=== PATIENT | male | born 1980 | race Caucasian/White ===

== ENCOUNTER → 2016-05-19 | Day surgery (SDC) | payer OTHER ==
[~2016-05-19] VITALS: Ht 177.8 cm; Wt 70.3 kg
[2016-05-19] VITALS (8 sets, daily range): BP systolic 102–117; BP diastolic 63–79
[~2016-05-19] MED LIST: APRISO0.375 GM PO; ASACOL HD800 MG ORAL; LR 1000ml ONE; Lidocaine 1% MPF 10mg/ml 5ml ONE; Propofol 10mg/ml 20ml IV ONE; SERTRALINE HCL50 MG ORAL
--- NOTE | 2016-05-19 08:15 | Pre-Procedure Note/Attestation ---
Pre-Procedure Note/Attestation Complete Prior to Procedure Planned Procedure: not applicable Procedure Narrative: colonoscopy Indications for Procedure Pre-Operative Diagnosis: uc Attestation I attest that I discussed the nature of the procedure; its benefits; risks and complications; and alternatives (and the risks and benefits of such alternatives ), prior to the procedure, with the patient (or the patient's legal insurance representative). I attest that, if there was a reasonable possibility of needing a blood transfusion, the patient (or the patient's legal insurance representative) was given the [facility] standardized written summary, pursuant to the [place] Blood Safety Act ([place] Health and Safety Code # 1645, as amended). I attest that I re-evaluated the patient just prior to the surgery and that there has been no change in the patient's H&P, except as documented below: IRMA TODD May 19, 2016 08:15
--- NOTE | 2016-05-19 08:16 | Short Stay Surgery H&P ---
History of Present Illness History of Present Illness Chief Complaint uc HPI Varinder Garcia is a 36 year old male who was admitted on for Colitis Patient History Allergies: Coded Allergies: PENICILLINS (Verified Allergy, Mild, 05/19/16) PALMS OF HAND AND FEET GET ITCHY PAST MEDICAL HISTORY: (1) Ulcerative colitis Past Surgeries: Social History: Medication History Scheduled Mesalamine (Apriso), 0.375 GM PO DA, (Reported) Discontinued Medications Mesalamine (Asacol Hd), 2,400 MG ORAL BID, (Reported) Discontinued Reason: Pt stopped taking med Sertraline Hcl* (Zoloft*), 50 MG ORAL DAILY, (Reported) Discontinued Reason: Pt stopped taking med Review of Systems Cardiovascular: Reports: no symptoms Respiratory: Reports: no symptoms Skeletal: Reports: no symptoms Gastrointestinal: Reports: no symptoms Genitourinary: Reports: no symptoms Neurologic: Reports: no symptoms Endocrine: Reports: no symptoms Hematologic: Reports: no symptoms Physical Exam Vital Signs Last Vital Signs Date Time Temp Pulse Resp B/P Pulse Ox O2 Delivery O2 Flow Rate FiO2 05/19/16 07:19 97.7 66 20 117/79 100 Room Air Skin: normal HENT: normal Heart: normal Lungs: normal Abdomen: normal Extremities: normal Plan Plan of Care colonoscopy Final Diagnosis: Attestation Are the patient's medical conditions optimized for surgery? Attestation Response: yes IRMA TODD May 19, 2016 08:16
--- NOTE | 2016-05-19 08:38 | Anethesia Preoperative Eval ---
Anesthesia Pre-op PMH/ROS General Date of Evaluation: May 19, 2016 Time of Evaluation: 08:36 Anesthesiologist: uzma ASA Score: ASA 2 Mallampati Score Class I : Soft palate, uvula, fauces, pillars visible Class II: Soft palate, uvula, fauces visible Class III: Soft palate, base of uvula visible Class IV: Only hard plate visible Surgeon: terry Diagnosis: ulcerative colitis Surgical Procedure: colonoscopy Anesthesia History: none Family History: no anesthesia problems Allergies: Coded Allergies: PENICILLINS (Verified Allergy, Mild, 05/19/16) PALMS OF HAND AND FEET GET ITCHY Medications: see eMAR Past Medical History Cardiovascular: Denies: CAD, HTN, TN, arrhythmia, other, valve dz Pulmonary: Denies: COPD, ISIDRO, asthma, other Gastrointestinal/Genitourinary: Reports: other - ulcertive coliti Neurologic/Psychiatric: Denies: CVA, TIA, dementia, depression/anxiety, other HEENT: Denies: [place] (L), [place] (R), cataract (L), cataract (R), glaucoma, other Hematology/Immune: Denies: DVT, anemia, bleeding disorder, other Musculoskeletal/Integumentary: Denies: DDD, DJD, OA, RA, edema, other PSxH Narrative: colonscopy Anesthesia Pre-op Phys. Exam Physician Exam Last Vital Signs Date Time Temp Pulse Resp B/P Pulse Ox O2 Delivery O2 Flow Rate FiO2 05/19/16 07:19 97.7 66 20 117/79 100 Room Air Constitutional: NAD Neurologic: CN 2-12 intact Cardiovascular: RRR Respiratory: CTA Gastrointestinal: S/NT/ND Airway Exam Mallampati Classification 2 Mallampati Score: Class II MO: full Neck: normal ROM: full Dentures: no lower, no upper Anesthesia Pre-op A/P Studies Pre-op Studies: EKG - sr Risk Assessment & Plan Plan: mac Pre-Antibiotics Drug: none ARSALAN CASTILLO CRNA May 19, 2016 08:38
--- NOTE | 2016-05-19 08:57 | Immediate Post-Op Evaluation ---
Immediate Post-Op Evalulation Immediate Post-Op Evalulation Procedure: colonoscopy Date of Evaluation: May 19, 2016 Time of Evaluation: 08:57 IV Fluids: 200 Blood Pressure Systolic: 114 Blood Pressure Diastolic: 64 Pulse Rate: 74 O2 Sat by Pulse Oximetry: 98 Temperature (Fahrenheit): 97.4 Nausea: No Vomiting: No Complications none Patient Status: awake, reacts, patent Hydration Status: adequate Drug: none ARSALAN CASTILLO CRNA May 19, 2016 08:57
--- NOTE | 2016-05-19 09:30 | 48 Hour Post Anesthesia Eval ---
Post Anesthesia Evaluation Procedure: colonoscopy Date of Evaluation: May 19, 2016 Time of Evaluation: 09:29 Blood Pressure Systolic: 115 0: 65 Pulse Rate: 75 O2 Sat by Pulse Oximetry: 99 Airway: patent Nausea: No Vomiting: No Hydration Status: adequate Mental Status/LOC: patient returned to baseline Post-Anesthesia Complications: none ARSALAN CASTILLO CRNA May 19, 2016 09:30
--- NOTE | 2016-05-19 19:59 | Procedure Note ---
DATE OF PROCEDURE: 05/19/2016 SURGEON: Bobby Diego M.D. PROCEDURE: Colonoscopy with biopsy. ANESTHESIA: Per VACUUM REPAIRER, Yissel Tarrillion. INSTRUMENT: Olympus adult flexible colonoscope. INDICATION: Ulcerative colitis and follow up colonoscopy. REASON FOR PROCEDURE: The procedure, risks, benefits, and possible consequences, including hemorrhage, aspiration, perforation and infection, and alternative treatments were explained to the patient/legal guardian by Dr. Bobby Diego and the patient/legal guardian understood and accepted these risks. DESCRIPTION OF PROCEDURE: After informed consent was obtained and the patient was adequately sedated, first rectal exam was performed, which shows normal. Then, Olympus colonoscope was advanced from the rectum into the cecum documented by appendiceal orifice, ileocecal valve, and upper quadrant palpation. Quality of prep was very good. The patient had normal colonoscopy examination. No obvious active colitis at this time. No polyps. No diverticulosis. Random biopsy from the of the colon was obtained from the cecum, ascending colon, transverse colon, descending colon, sigmoid and rectum were obtained. Retroflexion of rectum showed evidence of few small nonbleeding internal hemorrhoid. SUMMARY OF FINDINGS: Normal colonoscopy examination status post random biopsies from all quadrants colon for evaluation of the ulcerative colitis. RECOMMENDATIONS: Follow up biopsies and treat accordingly. Bobby Diego M.D. DR: Devan JOB#: [id number] CC:
--- NOTE | 2016-05-22 12:08 | Endoscopy Procedure Note ---
Endoscopy Procedure Note Indication for Procedure: uc Procedures Performed: colonoscopy Operative Findings/Diagnosis: hemorhoids Specimen: yes Pt Tolerated Procedure Well: Yes Estimated Blood Loss: none Anesthesiologist: zena Anesthesia: MAC Implant(s) used?: No 50 yrs or older w/o bx or poly: Not Applicable 10yrs. F/U not recommended: Not Applicable IRMA TODD May 22, 2016 12:08
== END | disposition home or self-care (01) ==
LOC: GAS 06:52
DX: K51.90 Ulcerative colitis, unspecified, without complications (principal); Z88.0 Allergy status to penicillin
CPT/HCPCS: 45380; J2704; J7120; 94003; 94150

== ENCOUNTER 2018-06-30 07:04 | Day surgery (SDC) | payer OTHER ==
[~2018-06-30] VITALS: Ht 177.8 cm; Wt 70.3 kg
[2018-06-30] VITALS (10 sets, daily range): BP systolic 102–125; BP diastolic 60–75
[~2018-06-30 07:04] MED LIST changes: -LR 1000ml ONE; -Lidocaine 1% MPF 10mg/ml 5ml ONE; -Propofol 10mg/ml 20ml IV ONE
[2018-06-30] MEDS ORDERED: ZINC50 M2 ORAL (07:42)
[2018-06-30] MEDS ORDERED: MULTIVITAMINS1 EAC2 ORAL (07:42)
[2018-06-30] MEDS ORDERED: VITAMIN B122500 MCG PO (07:42)
--- NOTE | 2018-06-30 08:49 | Pre-Procedure Note/Attestation ---
Pre-Procedure Note/Attestation Complete Prior to Procedure Planned Procedure: not applicable Procedure Narrative: colonoscopy Indications for Procedure Pre-Operative Diagnosis: uc Attestation I attest that I discussed the nature of the procedure; its benefits; risks and complications; and alternatives (and the risks and benefits of such alternatives ), prior to the procedure, with the patient (or the patient's legal traffic workforce representative). I attest that, if there was a reasonable possibility of needing a blood transfusion, the patient (or the patient's legal traffic workforce representative) was given the [facility] standardized written summary, pursuant to the [place] Blood Safety Act ([place] Health and Safety Code # 1645, as amended). I attest that I re-evaluated the patient just prior to the surgery and that there has been no change in the patient's H&P, except as documented below: Bobby Diego MD Jun 30, 2018 08:49
--- NOTE | 2018-06-30 08:50 | Short Stay Surgery H&P ---
History of Present Illness History of Present Illness Chief Complaint uc HPI Varinder Garcia is a 38 year old male who was admitted on for Abdominal Pain Patient History Allergies: Coded Allergies: PENICILLINS (Verified Allergy, Mild, 06/30/18) PALMS OF HAND AND FEET GET ITCHY PAST MEDICAL HISTORY: (1) Ulcerative colitis Medication History Scheduled Cyanocobalamin (Vitamin B-12) (Vitamin B12), 2,500 MCG PO DAILY, (Reported) Mesalamine (Apriso), 0.375 GM PO DA, (Reported) Multivitamins* (Multivitamins*), 1 TAB ORAL DAILY, (Reported) Zinc Amino Acid Chelate (Zinc), Unknown Dose ORAL DAILY, (Reported) Review of Systems Cardiovascular: Reports: no symptoms Respiratory: Reports: no symptoms Skeletal: Reports: no symptoms Gastrointestinal: Reports: no symptoms Genitourinary: Reports: no symptoms Neurologic: Reports: no symptoms Endocrine: Reports: no symptoms Hematologic: Reports: no symptoms Physical Exam Vital Signs Last Vital Signs Date Time Temp Pulse Resp B/P (MAP) Pulse Ox O2 Delivery O2 Flow Rate FiO2 06/30/18 07:57 97.3 58 18 125/75 100 Room Air Skin: normal HENT: normal Heart: normal Lungs: normal Abdomen: normal Extremities: normal Plan Plan of Care colonoscopy Attestation Are the patient's medical conditions optimized for surgery? Attestation Response: yes Bobby Diego MD Jun 30, 2018 08:50
[2018-06-30] MEDS ORDERED: Midazolam 2mg/2ml Inj ONE (08:54)
[2018-06-30] MEDS ORDERED: Succinylcholine 20mg/ml 10ml vial ONE (08:54)
--- NOTE | 2018-06-30 09:23 | Anethesia Preoperative Eval ---
Anesthesia Pre-op PMH/ROS General Date of Evaluation: Jun 30, 2018 Time of Evaluation: 08:55 Anesthesiologist: Linda ASA Score: ASA 1 Mallampati Score Class I : Soft palate, uvula, fauces, pillars visible Class II: Soft palate, uvula, fauces visible Class III: Soft palate, base of uvula visible Class IV: Only hard plate visible Mallampati Classification: Class I Surgeon: Johnathon Diagnosis: abdominal pain Surgical Procedure: Colonoscopy Anesthesia History: none Social History: alcohol use - social Family History: no anesthesia problems Allergies: Coded Allergies: PENICILLINS (Verified Allergy, Mild, 06/30/18) PALMS OF HAND AND FEET GET ITCHY Medications: see eMAR Patient NPO?: Yes - pt states had 2 sips water at 5 am NPO Date: Jun 30, 2018 NPO Time: 05:00 Past Medical History Cardiovascular: Denies: HTN, CAD, [place], valve dz, arrhythmia, other Pulmonary: Reports: asthma - as child Gastrointestinal/Genitourinary: Reports: other - ulcerative colitis Neurologic/Psychiatric: Reports: depression/anxiety Endocrine: Denies: DM, hypothyroidism, steroids, other HEENT: Denies: cataract (L), cataract (R), glaucoma, [place] (L), [place] (R), other Hematology/Immune: Denies: anemia, DVT, bleeding disorder, other Musculoskeletal/Integumentary: Reports: other - back pain, scoliosis PSxH Narrative: colonoscopy Anesthesia Pre-op Phys. Exam Physician Exam Last Vital Signs Date Time Temp Pulse Resp B/P (MAP) Pulse Ox O2 Delivery O2 Flow Rate FiO2 06/30/18 07:57 97.3 58 18 125/75 100 Room Air Constitutional: NAD Neurologic: CN 2-12 intact Cardiovascular: RRR Respiratory: CTA Gastrointestinal: S/NT/ND Airway Exam Mallampati Score: Class I MO: full ROM: full Teeth: intact Dentures: no upper, no lower Anesthesia Pre-op A/P Risk Assessment & Plan Assessment: A&Ox4 Plan: MAC Status Change Before Surgery: No Pre-Antibiotics Given Within 1 Hr of Incision: Marielena Roberts CRNA Jun 30, 2018 09:22
--- NOTE | 2018-06-30 09:24 | Immediate Post-Op Evaluation ---
Immediate Post-Op Evalulation Immediate Post-Op Evalulation Procedure: colonoscopy with biopsies Date of Evaluation: Jun 30, 2018 Time of Evaluation: 09:40 IV Fluids: NSS Blood Products: 0 Estimated Blood Loss: 0 Urinary Output: 0 Blood Pressure Systolic: 108 Blood Pressure Diastolic: 69 Pulse Rate: 62 Respiratory Rate: 17 O2 Sat by Pulse Oximetry: 100 Temperature (Fahrenheit): 97.2 Pain Score (1-10): 0 Nausea: No Vomiting: No Complications none noted Patient Status: awake, reacts, patent Hydration Status: adequate Given Within 1 Hr of Incision: No - none per surgeon Marielena Mckeon CRNA Jun 30, 2018 09:24
--- NOTE | 2018-06-30 09:24 | 48 Hour Post Anesthesia Eval ---
Post Anesthesia Evaluation Procedure: colonoscopy with biopsies Date of Evaluation: Jun 30, 2018 Time of Evaluation: 10:13 Blood Pressure Systolic: 107 0: 70 Pulse Rate: 66 Respiratory Rate: 16 Temperature (Fahrenheit): 97.2 O2 Sat by Pulse Oximetry: 98 Airway: patent Nausea: No Vomiting: No Pain Intensity: 0 Hydration Status: adequate Cardiopulmonary Status: WNL Mental Status/LOC: patient returned to baseline Follow-up care needed: patient intructions given Marielena Mckeon CRNA Jun 30, 2018 09:24
[2018-06-30] MEDS ORDERED: fentaNYL 100 mcg/2 mL IV PRN (10:15)
--- NOTE | 2018-06-30 16:45 | Procedure Note ---
DATE OF PROCEDURE: 06/30/2018 SURGEON: Bobby Diego M.D. PROCEDURE: Colonoscopy with biopsy. ANESTHESIA: Per Linda GALVAN. INSTRUMENT: Olympus adult flexible colonoscope. INDICATION: Followup on ulcerative colitis. REASON FOR PROCEDURE: The procedure, risks, benefits, and possible consequences, including hemorrhage, aspiration, perforation and infection, and alternative treatments, were explained to the patient/legal guardian by Dr. Bobby Diego and the patient/legal guardian understood and accepted these risks. PROCEDURE IN DETAIL: After informed consent was obtained and the patient was adequately sedated, first rectal exam was performed, which was normal. Then, the scope was advanced from the rectum into the cecum documented by appendix orifice, ileocecal valve, and right upper quadrant palpation. Quality of prep was mediocre, I would say roughly about 15% of the colonic mucosa was not examined given this prep. The problem with the prep was in the cecum and also in the left colon. The patient had no evidence of active colitis at this time. Random biopsy from cecum, ascending colon, transverse colon, descending colon, sigmoid colon, and rectum was obtained. There was some few hyperplastic polyps in the rectum, which we did not biopsy at this time. Retroflexion of rectum showed evidence of medium-sized nonbleeding internal hemorrhoids. SUMMARY OF FINDINGS: 1. Mediocre prep, see above for details. 2. No evidence of any active colitis at this time. 3. Status post random biopsy of all colonic locations. 4. Internal hemorrhoids. RECOMMENDATIONS: Follow up biopsy results and treat accordingly. Bobby Diego M.D. DR: SEEMA JOB#: [id number] CC:
== END 2018-06-30 10:50 | disposition home or self-care (01) ==
LOC: GAS 07:04
DX: K64.8 Other hemorrhoids (principal); K63.5 Polyp of colon; Z88.0 Allergy status to penicillin; K51.90 Ulcerative colitis, unspecified, without complications; F32.9 Major depressive disorder, single episode, unspecified; F41.9 Anxiety disorder, unspecified
CPT/HCPCS: 45380; J0330; J2250; 94003; 94150